=== PATIENT | male | born 1985 | race American Indian/Alaskan Native ===

== ENCOUNTER 2024-05-25 17:30 | Emergency (ER) | payer OTHER ==
[~2024-05-25] VITALS: Ht 172.7 cm; Wt 76.2 kg
[2024-05-25 19:03] VITALS: BP 138/81
== END 2024-05-25 19:03 | disposition home or self-care (01) ==
LOC: ED 17:30
DX: S51.812A Laceration without foreign body of left forearm, initial encounter (principal); W45.8XXA Other foreign body or object entering through skin, initial encounter
CPT/HCPCS: 12034; 99282-25